=== PATIENT | female | born 1945 | race Hispanic/Latino ===

== ENCOUNTER → 2017-07-15 | Outpatient (CLI) | payer OTHER, MEDICARE ==
[~2017-07-15] MED LIST: ACET1TAB12 PO; ACET1TAB25 PO; AMLO10TA2 PO; APIX5TAB4 PO; ASPI-1197 PO; CALC-190 PO; CALC-724 PO; CHOL239. PO; ESCI10TA54 PO; FOLI0.8C PO; FOLI0.8T2 PO; FURO40TA5 PO; NITR100C9 PO; ONDA4TAB9 PO; PANT40TA PO; POTA10TA11 PO; PRED5TAB PO; SULF1TAB3 PO
[2017-07-15 12:10] LABS: CREATININE 0.7 mg/dL (0.5-1.5)
== END ==
LOC: LAB 11:06
PROVIDERS: ATTEND Internal Medicine Cardiovascular Disease
DX: I73.9 Peripheral vascular disease, unspecified (principal)
CPT/HCPCS: 36415; 82565; 84520

== ENCOUNTER → 2017-07-16 | Outpatient (CLI) | payer OTHER, MEDICARE ==
[~2017-07-16] MED LIST changes: +IOPAMIDOL-370 75 ML VIAL IV ONE; +ISOVUE-370 50ML VIAL IV ONE
== END ==
LOC: OIH 08:56
PROVIDERS: ATTEND Internal Medicine Cardiovascular Disease
DX: I25.10 Atherosclerotic heart disease of native coronary artery without angina pectoris (principal); I70.203 Unspecified atherosclerosis of native arteries of extremities, bilateral legs; I73.9 Peripheral vascular disease, unspecified
CPT/HCPCS: 75635; Q9967 ×2

== ENCOUNTER 2017-08-11 21:19 | Emergency (ER) | payer OTHER, MEDICARE ==
[~2017-08-11 21:19] MED LIST changes: -ACET1TAB25 PO; -AMLO10TA2 PO; -APIX5TAB4 PO; -ASPI-1197 PO; -CALC-190 PO; -FOLI0.8C PO; -IOPAMIDOL-370 75 ML VIAL IV ONE; -ISOVUE-370 50ML VIAL IV ONE; -NITR100C9 PO; -ONDA4TAB9 PO; -SULF1TAB3 PO
[2017-08-11 22:02] LABS: BASOPHILS % (AUTO) 0.1 % (0.0-5.0); HEMATOCRIT 26.7 % (36-48); LYMPHOCYTES % (AUTO) 7.4 % (21.0-51.0); MEAN CORPUSCULAR HEMOGLOBIN 33.8 pg (27.0-33.0); MEAN CORPUSCULAR HGB CONC 34.1 g/dL (32.0-36.0); MEAN CORPUSCULAR VOLUME 99.2 fL (79-99); MONOCYTES % (AUTO) 3.8 % (3.0-13.0); NEUTROPHILS % (AUTO) 88.7 % (40.0-77.0); PLATELET COUNT (AUTO) 281 K/uL (130-400); RED BLOOD CELL COUNT(AUTO) 2.69 MIL/uL (4.00-5.50); RED CELL DISTRIBUTION WIDTH 18.7 % (11.0-15.5); WHITE BLOOD COUNT (AUTO) 9.9 K/uL (4.8-10.8)
[2017-08-11] MEDS ORDERED: ONDANSETRON HCL MDV 20ML 2 MG/ML VIAL ONE (22:30)
[2017-08-11] MEDS ORDERED: MORPHINE SULFATE 2 MG/ML 1ML SYG ONE (22:30)
[2017-08-11 22:36] LABS: CREATININE 1.2 mg/dL (0.5-1.5); POTASSIUM 3.3 mmol/L (3.5-5.1)
[2017-08-11 22:40] LABS: ALBUMIN 2.2 g/dL (3.5-5.0); BILIRUBIN,TOTAL 0.4 mg/dL (0.2-1.0); TOTAL PROTEIN, SERUM 6.2 g/dL (6.0-8.3)
[2017-08-12] MEDS ORDERED: SODIUM CHLORIDE 0.9% 1000ML 1,000 ML IV ONE (00:04)
== END 2017-08-12 03:22 | disposition home or self-care (01) ==
LOC: EDH 21:19
DX: E86.0 Dehydration (principal); R19.7 Diarrhea, unspecified; I95.1 Orthostatic hypotension; E11.9 Type 2 diabetes mellitus without complications; I10 Essential (primary) hypertension; M25.552 Pain in left hip; M25.551 Pain in right hip; M79.1 Myalgia; Z90.49 Acquired absence of other specified parts of digestive tract; Z90.710 Acquired absence of both cervix and uterus; Z87.891 Personal history of nicotine dependence
CPT/HCPCS: 36415; 80053; 82948; 85025; 96361; 96374; 96375; 99285; J7030

== ENCOUNTER 2017-08-14 10:17 | Inpatient (IN) | payer OTHER, MEDICARE ==
[~2017-08-14] VITALS: Ht 160 cm; Wt 53.3 kg
[2017-08-14] MEDS ORDERED: DEXTROSE 50%-WATER 50 ML DISP.SYRIN IV ONE ×2 (10:24→22:21)
[2017-08-14 10:56] LABS: BASOPHILS % (AUTO) 0.1 % (0.0-5.0); LYMPHOCYTES % (AUTO) 9.1 % (21.0-51.0); MEAN CORPUSCULAR HGB CONC 32.4 g/dL (32.0-36.0); MEAN CORPUSCULAR VOLUME 101.7 fL (79-99); MONOCYTES % (AUTO) 3.6 % (3.0-13.0); NEUTROPHILS % (AUTO) 87.2 % (40.0-77.0); NUCLEATED RED BLOOD CELLS 0.2 % (0.0-0.19); PLATELET COUNT (AUTO) 318 K/uL (130-400); RED BLOOD CELL COUNT(AUTO) 2.56 MIL/uL (4.00-5.50); WHITE BLOOD COUNT (AUTO) 12.8 K/uL (4.8-10.8)
[2017-08-14] MEDS ORDERED: MEROPENEM 1 GM VIAL ONE (10:56)
[2017-08-14 11:05] LABS: CREATININE 1.2 mg/dL (0.5-1.5); POTASSIUM 4.8 mmol/L (3.5-5.1)
[2017-08-14 11:19] LABS: ALBUMIN 2.2 g/dL (3.5-5.0); BILIRUBIN,TOTAL 0.7 mg/dL (0.2-1.0); CREATINE KINASE MB 4.9 ng/mL (0.5-3.6); TOTAL PROTEIN, SERUM 5.4 g/dL (6.0-8.3)
[2017-08-14 11:20] LABS: APPEARANCE,URINE TURBID (CLEAR); BILIRUBIN,URINE MODERATE (NEGATIVE); COLOR,URINE RED (YELLOW); GLUCOSE, URINE (UA) NEGATIVE (NEGATIVE); KETONES,URINE NEGATIVE (NEGATIVE); LEUKOCYTE ESTERASE ,URINE MODERATE (NEGATIVE); NITRATE,URINE POSITIVE (NEGATIVE); OCCULT BLOOD,URINE LARGE (NEGATIVE); PROTEIN,URINE >=300 (NEGATIVE)
[2017-08-14 11:47] LABS: BACTERIA,URINE Many /HPF (None Seen); RBC,URINE TNTC /HPF (0-1); SQUAMOUS EPITHELIAL CELL,UR Rare /HPF (0-2); WBC,URINE 51-100 /HPF (0-1)
[2017-08-14 11:52] LABS: INR 1.73 (0.85-1.15); PARTIAL THROMBOPLASTIN TIME 46.2 SEC (26.3-35.5)
[2017-08-14] MEDS ORDERED: CALCIUM GLUCONATE 1 GM/10 ML VIAL IV ONE (11:52)
[2017-08-14] MEDS ORDERED: SODIUM CHLORIDE 0.9% 1000ML 1,000 ML IV ONE (11:52)
[2017-08-14] MEDS ORDERED: ALBUMIN (HUMAN) 25% 100 ML IV ONE (11:53)
[2017-08-14] MEDS ORDERED: SODIUM CHLORIDE 0.9% 1000ML 1,000 ML IV SCH (14:16)
[2017-08-14] MEDS ORDERED: MAG HYDROX/AL HYDROX/SIMETH ES 30 ML SUSP UDCUP PO PRN (14:30)
[2017-08-14] MEDS ORDERED: GUAIFENESIN-DM 200/20 MG 10 ML PO PRN (14:30)
[2017-08-14] MEDS ORDERED: VANCOMYCIN 1GM+NS 250ML 250 ML IV SCH (14:30)
[2017-08-14] MEDS ORDERED: ONDANSETRON HCL MDV 20ML 2 MG/ML VIAL IV PRN (14:30)
[2017-08-14] MEDS ORDERED: VANCOMYCIN PROTOCOL PER PHARMACY IV PRN (14:30)
[2017-08-14] MEDS ORDERED: ACETAMINOPHEN 325 MG TAB PO PRN ×2 (14:30)
[2017-08-14] MEDS ORDERED: LIDOCAINE HCL-MPF 1% 2ML VIAL IVP PRN ×2 (14:30)
[2017-08-14] MEDS ORDERED: CEFTRIAXONE 1GM/D5W 50ML 50 ML IV SCH (14:30)
[2017-08-14] MEDS ORDERED: NITROGLYCERIN 0.4 MG SL TAB SL PRN (14:30)
[2017-08-14] MEDS ORDERED: POTASSIUM CHLORIDE 20MEQ/100ML 100 ML IV PRN ×2 (14:30)
[2017-08-14] MEDS ORDERED: LACTULOSE 20 GM/30 ML UDCUP PO PRN (14:30)
[2017-08-14] MEDS ORDERED: POTASSIUM CHLORIDE 10% ELIXIR 20 MEQ/15 ML UDCUP PO PRN ×2 (14:30)
[2017-08-14] MEDS ORDERED: POTASSIUM CHLORIDE 20 MEQ ERTAB PO PRN ×2 (14:30)
[2017-08-14] MEDS ORDERED: HYDRALAZINE HCL 20 MG/ML VIAL IV PRN (14:30)
[2017-08-14] MEDS ORDERED: GLUCAGON 1MG KIT 1 MG ML IM PRN (14:45)
[2017-08-14] MEDS ORDERED: VANCOMYCIN 1GM+NS 250ML 250 ML IV ONE (15:57)
[2017-08-14] MEDS ORDERED: CEFTRIAXONE SODIUM 500 MG VIAL ONE (15:59)
[2017-08-14] MEDS ORDERED: SODIUM CHLORIDE 0.9% 50 ML IV ONE (15:59)
[2017-08-14] MEDS ORDERED: INSULIN HUMULIN R 100 UNIT/ML 3ML SQ SCH (16:30)
[2017-08-14] MEDS ORDERED: DIGOXIN 250 MCG/ML 2ML AMP ONE (18:02)
[2017-08-14] MEDS: METOPROLOL TARTRATE 25 MG TAB PO SCH (21:00)
[2017-08-14] MEDS ORDERED: ENOXAPARIN SODIUM 1 MG/KG SQ SCH (21:00)
[2017-08-14] MEDS ORDERED: FAMOTIDINE 20MG TAB 20 MG TAB PO SCH (21:00)
[2017-08-15] MEDS ORDERED: DEXTROSE 50%-WATER 50 ML DISP.SYRIN IV ONE ×2 (01:59→04:28)
[2017-08-15] MEDS ORDERED: SODIUM CHLORIDE 0.9% 1000ML 1,000 ML IV ONE (02:37)
[2017-08-15] MEDS ORDERED: METOPROLOL TARTRATE 25 MG TAB ONE (03:16)
[2017-08-15] MEDS ORDERED: ONDANSETRON HCL MDV 20ML 2 MG/ML VIAL ONE (03:54)
[2017-08-15] MEDS ORDERED: DEXTROSE 10%-WATER 1,000 ML IV ONE (05:36)
[2017-08-15 05:54] LABS: HEMATOCRIT 22.1 % (36-48); MEAN CORPUSCULAR HEMOGLOBIN 32.3 pg (27.0-33.0); MEAN CORPUSCULAR HGB CONC 31.8 g/dL (32.0-36.0); MEAN CORPUSCULAR VOLUME 101.4 fL (79-99); NUCLEATED RED BLOOD CELLS 0.2 % (0.0-0.19); PLATELET COUNT (AUTO) 238 K/uL (130-400); RED BLOOD CELL COUNT(AUTO) 2.18 MIL/uL (4.00-5.50); RED CELL DISTRIBUTION WIDTH 19.6 % (11.0-15.5); WHITE BLOOD COUNT (AUTO) 12.8 K/uL (4.8-10.8)
[2017-08-15 05:58] LABS: CREATININE 1.1 mg/dL (0.5-1.5); POTASSIUM 3.3 mmol/L (3.5-5.1)
[2017-08-15] MEDS: METOPROLOL TARTRATE 25 MG TAB PO SCH ×2 (09:00→21:57)
[2017-08-15] MEDS ORDERED: CEFTRIAXONE SODIUM 1 GM ONE (09:43)
[2017-08-15] MEDS ORDERED: FAMOTIDINE 20MG TAB 20 MG TAB ONE (09:44)
[2017-08-15] MEDS ORDERED: MORPHINE SULFATE 2 MG/ML 1ML SYG ONE (09:44)
[2017-08-15] MEDS ORDERED: COMPOUND IV REFRIGERATED 1 EACH IVSOLN MISC PRN (11:15)
[2017-08-15] MEDS: VANCOMYCIN 750MG + NS 250 ML IV SCH ×2 (13:00)
[2017-08-15] MEDS: PREDNISONE 5 MG TABLET PO SCH (13:15)
[2017-08-15 13:40] LABS: HEMATOCRIT 22.6 % (36-48)
[2017-08-15] MEDS ORDERED: ASPI-1197 PO (14:04)
[2017-08-15] MEDS ORDERED: SULF1TAB3 PO (14:04)
[2017-08-15] MEDS ORDERED: ACET1TAB25 PO (14:04)
[2017-08-15] MEDS ORDERED: CALC-190 PO (14:04)
[2017-08-15] MEDS ORDERED: NITR100C9 PO (14:04)
[2017-08-15] MEDS ORDERED: APIX5TAB4 PO (14:04)
[2017-08-15] MEDS ORDERED: FOLI0.8C PO (14:04)
[2017-08-15] MEDS ORDERED: ONDA4TAB9 PO (14:04)
[2017-08-15] MEDS ORDERED: AMLO10TA2 PO (14:04)
[2017-08-15] MEDS ORDERED: POTASSIUM CHLORIDE 20 MEQ ERTAB PO ONE (14:45)
[2017-08-15 17:34] VITALS: BP 125/64
[2017-08-15] MEDS: MORPHINE SULFATE 2 MG/ML 1ML SYG IV PRN (17:47)
[2017-08-15 19:00] VITALS: BP 110/68
[2017-08-15] MEDS ORDERED: SODIUM CHLORIDE 0.9% 250 ML IV ONE (19:01)
[2017-08-15] MEDS: ACETAMINOPHEN-CODEINE 300/30MG TAB PO PRN (23:27)
[2017-08-16] VITALS (7 sets, daily range): BP systolic 94–122; BP diastolic 46–96
[2017-08-16 03:01] LABS: APPEARANCE,URINE Cloudy (CLEAR); BILIRUBIN,URINE Negative (NEGATIVE); GLUCOSE, URINE (UA) Negative (NEGATIVE); KETONES,URINE Negative (NEGATIVE); LEUKOCYTE ESTERASE ,URINE Moderate (NEGATIVE); NITRATE,URINE Negative (NEGATIVE); OCCULT BLOOD,URINE Large (NEGATIVE); PH,URINE 5.5 (5.0-8.0); PROTEIN,URINE POS 1+ (NEGATIVE); UROBILINOGEN,URINE 0.2 mg/dL (0.2-1.0)
[2017-08-16 03:09] LABS: COLOR,URINE AMBER (YELLOW)
[2017-08-16 03:12] LABS: BACTERIA,URINE Rare /HPF (None Seen); MUCUS,URINE Rare LPF (None Seen); RBC,URINE 51-100 /HPF (0-1); SQUAMOUS EPITHELIAL CELL,UR Few /HPF (0-2); WBC,URINE 26-50 /HPF (0-1)
[2017-08-16 04:01] LABS: HEMATOCRIT 29.4 % (36-48); MEAN CORPUSCULAR HGB CONC 33.1 g/dL (32.0-36.0); MEAN CORPUSCULAR VOLUME 96.8 fL (79-99); NUCLEATED RED BLOOD CELLS 0.5 % (0.0-0.19); PLATELET COUNT (AUTO) 171 K/uL (130-400); RED BLOOD CELL COUNT(AUTO) 3.03 MIL/uL (4.00-5.50); RED CELL DISTRIBUTION WIDTH 20.3 % (11.0-15.5); WHITE BLOOD COUNT (AUTO) 10.6 K/uL (4.8-10.8)
[2017-08-16 04:19] LABS: CREATININE 0.8 mg/dL (0.5-1.5); MAGNESIUM 1.3 mg/dL (1.80-2.40); PHOSPHORUS 2.9 mg/dL (2.5-4.9); POTASSIUM 3.7 mmol/L (3.5-5.1)
[2017-08-16] MEDS: MORPHINE SULFATE 2 MG/ML 1ML SYG IV PRN ×3 (05:34→20:41)
[2017-08-16] MEDS: DEXTROSE 50%-WATER 50 ML DISP.SYRIN IV PRN ×2 (06:18→11:55)
[2017-08-16 09:19] LABS: RETICULOCYTE % (AUTO) 4.32 % (0.42-2.23)
[2017-08-16] MEDS ORDERED: FOLIC ACID 1 MG TABLET PO SCH (09:30)
[2017-08-16 09:32] LABS: BILIRUBIN,DIRECT 0.1 mg/dL (0.0-0.3); BILIRUBIN,TOTAL 0.5 mg/dL (0.2-1.0)
[2017-08-16] MEDS ORDERED: MAGNESIUM 2GM PREMIX 50ML 50 ML IV SCH (09:45)
[2017-08-16 10:16] LABS: % IRON SATURATION 18.1 % (22-44)
[2017-08-16] MEDS: MEGESTROL 400 MG/10 ML UDCUP PO SCH (11:20)
[2017-08-16] MEDS: PREGABALIN 25 MG CAP PO SCH ×2 (11:20→20:35)
[2017-08-16] MEDS: METOPROLOL TARTRATE 25 MG TAB PO SCH ×2 (11:20→20:35)
[2017-08-16] MEDS: CEFTRIAXONE SODIUM 1 GM IVP SCH (11:21)
[2017-08-16] MEDS: PREDNISONE 5 MG TABLET PO SCH (11:21)
[2017-08-16] MEDS: FOLIC ACID 1 MG TABLET PO SCH (11:21)
[2017-08-16] MEDS: FAMOTIDINE 20MG TAB 20 MG TAB PO SCH (11:21)
[2017-08-16] MEDS: VANCOMYCIN 750MG + NS 250 ML IV SCH ×2 (14:06)
[2017-08-17 03:00] VITALS: BP 92/68
[2017-08-17] MEDS: MORPHINE SULFATE 2 MG/ML 1ML SYG IV PRN ×3 (03:24→20:51)
[2017-08-17 03:53] LABS: HEMATOCRIT 29.6 % (36-48); NUCLEATED RED BLOOD CELLS 0.7 % (0.0-0.19); PLATELET COUNT (AUTO) 131 K/uL (130-400); RED BLOOD CELL COUNT(AUTO) 3.05 MIL/uL (4.00-5.50); RED CELL DISTRIBUTION WIDTH 20.9 % (11.0-15.5); WHITE BLOOD COUNT (AUTO) 10.6 K/uL (4.8-10.8)
[2017-08-17 04:09] LABS: CREATININE 0.6 mg/dL (0.5-1.5); MAGNESIUM 1.8 mg/dL (1.80-2.40); PHOSPHORUS 2.7 mg/dL (2.5-4.9); POTASSIUM 4.1 mmol/L (3.5-5.1)
[2017-08-17] MEDS: HONEY 1 APPL/ML TUBE TP SCH (06:01)
[2017-08-17] MEDS: ACETAMINOPHEN-CODEINE 300/30MG TAB PO PRN (06:03)
[2017-08-17 08:07] VITALS: BP 100/65
[2017-08-17] MEDS: METOPROLOL TARTRATE 25 MG TAB PO SCH ×2 (09:00→20:50)
[2017-08-17] MEDS: MEGESTROL 400 MG/10 ML UDCUP PO SCH (10:09)
[2017-08-17] MEDS: FOLIC ACID 1 MG TABLET PO SCH (10:09)
[2017-08-17] MEDS: PREGABALIN 25 MG CAP PO SCH ×2 (10:09→20:50)
[2017-08-17] MEDS: FAMOTIDINE 20MG TAB 20 MG TAB PO SCH (10:09)
[2017-08-17] MEDS: CEFTRIAXONE SODIUM 1 GM IVP SCH (10:09)
[2017-08-17 12:17] VITALS: BP 120/87
[2017-08-17] MEDS: VANCOMYCIN 750MG + NS 250 ML IV SCH ×2 (15:42)
[2017-08-17 16:57] VITALS: BP 101/62
[2017-08-17 19:00] VITALS: BP 120/75
[2017-08-17 23:00] VITALS: BP 98/64
[2017-08-18 03:00] VITALS: BP 112/78
[2017-08-18] MEDS: MORPHINE SULFATE 2 MG/ML 1ML SYG IV PRN ×3 (04:23→14:36)
[2017-08-18 06:18] LABS: CREATININE 0.6 mg/dL (0.5-1.5); POTASSIUM 4.7 mmol/L (3.5-5.1)
[2017-08-18 07:41] VITALS: BP 105/69
[2017-08-18] MEDS ORDERED: DEXTROSE 5 %-0.45 % NACL 1,000 ML IV SCH (09:22)
[2017-08-18] MEDS ORDERED: DIGOXIN 250 MCG/ML 2ML AMP IV SCH (09:30)
[2017-08-18] MEDS: FOLIC ACID 1 MG TABLET PO SCH (10:10)
[2017-08-18] MEDS: PREDNISONE 10 MG TABLET PO SCH (10:10)
[2017-08-18] MEDS: METOPROLOL TARTRATE 25 MG TAB PO SCH ×2 (10:10→20:41)
[2017-08-18] MEDS: PREGABALIN 25 MG CAP PO SCH ×2 (10:10→20:41)
[2017-08-18] MEDS: FAMOTIDINE 20MG TAB 20 MG TAB PO SCH (10:10)
[2017-08-18] MEDS: MEGESTROL 400 MG/10 ML UDCUP PO SCH (10:11)
[2017-08-18] MEDS: CEFTRIAXONE SODIUM 1 GM IVP SCH (10:11)
[2017-08-18] MEDS: HONEY 1 APPL/ML TUBE TP SCH (10:30)
[2017-08-18 12:41] VITALS: BP 107/64
[2017-08-18] MEDS: VANCOMYCIN 750MG + NS 250 ML IV SCH ×2 (13:30)
[2017-08-18 16:17] VITALS: BP 144/78
[2017-08-18 19:00] VITALS: BP 122/57
[2017-08-18 23:00] VITALS: BP 121/84
[2017-08-19] MEDS: MORPHINE SULFATE 2 MG/ML 1ML SYG IV PRN ×4 (01:00→16:00)
[2017-08-19 03:00] VITALS: BP 113/79
[2017-08-19 08:00] VITALS: BP 124/76
[2017-08-19] MEDS ORDERED: PHARMACY COMMUNICATION MISC SCH (10:30)
[2017-08-19] MEDS: FAMOTIDINE 20MG TAB 20 MG TAB PO SCH (10:48)
[2017-08-19] MEDS: FOLIC ACID 1 MG TABLET PO SCH (10:48)
[2017-08-19] MEDS: PREDNISONE 10 MG TABLET PO SCH (10:48)
[2017-08-19] MEDS: METOPROLOL TARTRATE 25 MG TAB PO SCH (10:48)
[2017-08-19] MEDS: PREGABALIN 25 MG CAP PO SCH (10:48)
[2017-08-19] MEDS: MEGESTROL 400 MG/10 ML UDCUP PO SCH (10:48)
[2017-08-19] MEDS: CEFTRIAXONE SODIUM 1 GM IVP SCH (10:48)
[2017-08-19 11:39] VITALS: BP 132/66
[2017-08-19 16:00] VITALS: BP 122/82
== END 2017-08-19 17:30 | disposition hospice, home (50) | DRG 871 ==
LOC: EDH 10:17 → OBSVTOIN 13:25 → EDHIP 13:25 → 3BH 08-15 15:15
PROVIDERS: ADMIT Internal Medicine; ATTEND Internal Medicine
PROC: 30233N1 Transfusion of Nonautologous Red Blood Cells into Peripheral Vein, Percutaneous Approach (ICD-10-PCS; principal; 2017-08-14)
DX: A41.9 Sepsis, unspecified organism (principal); E43 Unspecified severe protein-calorie malnutrition; E11.51 Type 2 diabetes mellitus with diabetic peripheral angiopathy without gangrene; T68.XXXA Hypothermia, initial encounter; I48.0 Paroxysmal atrial fibrillation; E11.649 Type 2 diabetes mellitus with hypoglycemia without coma; E11.52 Type 2 diabetes mellitus with diabetic peripheral angiopathy with gangrene; J84.10 Pulmonary fibrosis, unspecified; M34.9 Systemic sclerosis, unspecified; D47.2 Monoclonal gammopathy; N39.0 Urinary tract infection, site not specified; I73.01 Raynaud's syndrome with gangrene; R64 Cachexia; Z66 Do not resuscitate; I48.91 Unspecified atrial fibrillation; I10 Essential (primary) hypertension; D53.9 Nutritional anemia, unspecified; D63.8 Anemia in other chronic diseases classified elsewhere; E03.9 Hypothyroidism, unspecified; E78.5 Hyperlipidemia, unspecified; E86.0 Dehydration; I34.0 Nonrheumatic mitral (valve) insufficiency; I35.0 Nonrheumatic aortic (valve) stenosis; M06.9 Rheumatoid arthritis, unspecified; R31.0 Gross hematuria; Z79.01 Long term (current) use of anticoagulants; Z87.891 Personal history of nicotine dependence; Z95.3 Presence of xenogenic heart valve; Z68.20 Body mass index [BMI] 20.0-20.9, adult
CPT/HCPCS: 36415; 36430; 71045; 80048; 80053; 81001; 82247; 82248; 82550; 82553; 82607; 82746; 82947; 82948; 83540; 83550; 83605; 83615; 83735; 84100; 84443; 84484; 85014; 85018; 85025; 85027; 85045; 85610; 85730; 86850; 86900; 86901; 86922; 87040; 87070; 87076; 87077; 87088; 87186; 92610; 93005; 96361; 96374; 96375; A4218; J0610; J0696; J1160; J2185; J3370; J3475; J3490; J7030; J7042; J7070; J7512; P9016; P9046